=== PATIENT | female | born 1935 | race Caucasian/White ===

== ENCOUNTER 2017-11-25 22:40 | Inpatient (IN) | payer OTHER ==
[~2017-11-25] VITALS: Ht 160 cm; Wt 41.7 kg
[2017-11-25] MEDS ORDERED: ALPR1TAB2 PO (23:25)
[2017-11-25] MEDS ORDERED: FLUT1DIS28 IH (23:25)
[2017-11-26] MEDS ORDERED: LORAZEPAM 0.5 MG TABLET PO PRN (02:45)
[2017-11-26] MEDS ORDERED: ACETAMINOPHEN 325 MG TABLET PO PRN (02:45)
[2017-11-26] MEDS ORDERED: TEMAZEPAM 7.5 MG CAPSULE PO PRN (02:45)
[2017-11-26 03:21] VITALS: BP 118/61
[2017-11-26 07:30] VITALS: BP 115/61
[2017-11-26 08:31] LABS: THYROID STIMULATING HORMONE 3.516 mIU/mL (0.358-3.740)
[2017-11-26 09:55] LABS: *BILIRUBIN,URIN NEGATIVE (NEGATIVE); *BLOOD, URINE NEGATIVE (NEGATIVE); *CLARITY,URINE CLEAR (CLEAR); *COLOR,URINE YELLOW (YELLOW); *KETONES,URINE NEGATIVE (NEGATIVE); *PROTEIN,URINE NEGATIVE (NEGATIVE); *UROBILINOGEN,URINE 0.2 E.U./dl (NORMAL); LEUKOCYTE ESTERASE ,URINE TRACE (NEGATIVE); NITRITE, URINE NEGATIVE (NEGATIVE); UGLUCOSE NEGATIVE (NEGATIVE)
[2017-11-26 09:58] LABS: BACTERIA,URINE FEW /HPF (NONE SEEN); RBC,URINE 0-3 /HPF (0-3); SQUAMOUS EPITHELIAL CELL,UR FEW /HPF (NONE SEEN); WBC,URINE 0-3 /HPF (0-3)
[2017-11-26 15:14] VITALS: BP 99/54
[2017-11-26] MEDS: POLYVINYL ALCOHOL OPHT DROPS 15 ML BOTTLE EACHEYE SCH ×2 (16:57→17:00)
[2017-11-26 21:22] VITALS: BP 106/52
[2017-11-26] MEDS: SIMVASTATIN 10 MG TABLET PO SCH (22:09)
[2017-11-27 07:30] VITALS: BP 110/67
[2017-11-27] MEDS: RIVASTIGMINE TARTRATE 1.5 MG CAPSULE PO SCH ×2 (08:47→20:51)
[2017-11-27] MEDS: POLYVINYL ALCOHOL OPHT DROPS 15 ML BOTTLE EACHEYE SCH ×2 (08:48→16:46)
[2017-11-27 15:42] VITALS: BP 109/57
[2017-11-27] MEDS: SIMVASTATIN 10 MG TABLET PO SCH (20:51)
[2017-11-27] MEDS: MIRTAZAPINE 15 MG TABLET PO SCH (20:52)
[2017-11-27 21:26] VITALS: BP 143/61
[2017-11-28 07:30] VITALS: BP 107/53
[2017-11-28] MEDS: RIVASTIGMINE TARTRATE 1.5 MG CAPSULE PO SCH ×2 (08:53→20:12)
[2017-11-28] MEDS: POLYVINYL ALCOHOL OPHT DROPS 15 ML BOTTLE EACHEYE SCH ×2 (08:53→17:19)
[2017-11-28] MEDS: FLUTICASONE/VILANTEROL 1 EACH BLST.W.DEV INH SCH (11:56)
[2017-11-28 15:29] VITALS: BP 123/62
[2017-11-28] MEDS ORDERED: FLUTICASONE/SALMETEROL 250/50 INHALER IH SCH (17:00)
[2017-11-28 20:00] VITALS: BP 104/66
[2017-11-28] MEDS: SIMVASTATIN 10 MG TABLET PO SCH (20:12)
[2017-11-28] MEDS: MIRTAZAPINE 15 MG TABLET PO SCH (21:00)
[2017-11-29 07:30] VITALS: BP 94/46
[2017-11-29] MEDS: RIVASTIGMINE TARTRATE 1.5 MG CAPSULE PO SCH ×2 (08:59→21:09)
[2017-11-29] MEDS: POLYVINYL ALCOHOL OPHT DROPS 15 ML BOTTLE EACHEYE SCH (09:00)
[2017-11-29] MEDS: FLUTICASONE/VILANTEROL 1 EACH BLST.W.DEV INH SCH (09:00)
[2017-11-29 15:20] VITALS: BP 105/57
[2017-11-29] MEDS: POLYVINYL ALCOHOL OPHT DROPS 15 ML BOTTLE EACHEYE PRN (17:11)
[2017-11-29] MEDS: MIRTAZAPINE 15 MG TABLET PO SCH (21:09)
[2017-11-29] MEDS: SIMVASTATIN 10 MG TABLET PO SCH (21:09)
[2017-11-30 07:30] VITALS: BP 102/50
[2017-11-30] MEDS: RIVASTIGMINE TARTRATE 1.5 MG CAPSULE PO SCH ×2 (09:00→20:03)
[2017-11-30] MEDS: FLUTICASONE/VILANTEROL 1 EACH BLST.W.DEV INH SCH (09:00)
[2017-11-30] MEDS: POLYVINYL ALCOHOL OPHT DROPS 15 ML BOTTLE EACHEYE PRN ×3 (09:00→20:03)
[2017-11-30 16:49] VITALS: BP 103/67
[2017-11-30] MEDS: MIRTAZAPINE 15 MG TABLET PO SCH (20:03)
[2017-11-30 20:15] VITALS: BP 104/50
[2017-11-30] MEDS: SIMVASTATIN 10 MG TABLET PO SCH (20:34)
[2017-12-01 07:30] VITALS: BP 107/43
[2017-12-01] MEDS: RIVASTIGMINE TARTRATE 1.5 MG CAPSULE PO SCH ×2 (09:01→20:10)
[2017-12-01] MEDS: POLYVINYL ALCOHOL OPHT DROPS 15 ML BOTTLE EACHEYE PRN ×3 (09:01→17:38)
[2017-12-01] MEDS: FLUTICASONE/VILANTEROL 1 EACH BLST.W.DEV INH SCH (09:09)
[2017-12-01 16:47] VITALS: BP 105/46
[2017-12-01 20:00] VITALS: BP 98/48
[2017-12-01] MEDS: MIRTAZAPINE 15 MG TABLET PO SCH (20:10)
[2017-12-01] MEDS: SIMVASTATIN 10 MG TABLET PO SCH (20:10)
[2017-12-02 07:30] VITALS: BP 109/49
[2017-12-02] MEDS: POLYVINYL ALCOHOL OPHT DROPS 15 ML BOTTLE EACHEYE PRN (08:49)
[2017-12-02] MEDS: RIVASTIGMINE TARTRATE 1.5 MG CAPSULE PO SCH (08:49)
[2017-12-02] MEDS: FLUTICASONE/VILANTEROL 1 EACH BLST.W.DEV INH SCH (08:49)
== END 2017-12-02 12:30 | DRG 881 ==
LOC: ER 22:44 → GPS 11-26 01:40
PROVIDERS: ADMIT Psychiatry & Neurology Psychiatry
DX: F32.9 Major depressive disorder, single episode, unspecified (principal); E44.0 Moderate protein-calorie malnutrition; Z68.1 Body mass index [BMI] 19.9 or less, adult; F03.91 Unspecified dementia, unspecified severity, with behavioral disturbance; F41.9 Anxiety disorder, unspecified; H26.9 Unspecified cataract; E78.5 Hyperlipidemia, unspecified; J45.909 Unspecified asthma, uncomplicated; R35.0 Frequency of micturition; M62.50 Muscle wasting and atrophy, not elsewhere classified, unspecified site
CPT/HCPCS: 36415; 84443; A4663

== ENCOUNTER 2018-01-27 19:41 | Inpatient (IN) | payer OTHER ==
[~2018-01-27] VITALS: Ht 160 cm; Wt 44.0 kg
[~2018-01-27 19:41] MED LIST: FLUT1DIS28 IH
[2018-01-27] MEDS ORDERED: HALOPERIDOL LACTATE 5 MG/1 ML VIAL IM ONE (20:30)
[2018-01-27] MEDS ORDERED: LORAZEPAM 2 MG/1 ML VIAL IM ONE (20:30)
[2018-01-27] MEDS ORDERED: HALOPERIDOL LACTATE 5 MG/1 ML VIAL ONE (20:32)
[2018-01-27] MEDS ORDERED: LORAZEPAM 2 MG/1 ML VIAL ONE (20:33)
[2018-01-27 20:43] LABS: BASOPHILS % (AUTO) 0.5 % (0.0-2.0); EOSINOPHILS # (AUTO) 0.2 K/uL (0.0-0.7); EOSINOPHILS % (AUTO) 2.4 % (0.0-7.0); HEMATOCRIT 35.7 % (31.2-41.9); HEMOGLOBIN 12.1 g/dL (10.9-14.3); LYMPHOCYTES # (AUTO) 2.2 K/uL (20.0-40.0); LYMPHOCYTES % (AUTO) 32.8 % (20.5-51.5); MEAN CORPUSCULAR HEMOGLOBIN 30.7 uug (24.7-32.8); MEAN CORPUSCULAR HGB CONC 34 g/dL (32.3-35.6); MEAN CORPUSCULAR VOLUME 90.9 fL (75.5-95.3); MONOCYTES # (AUTO) 0.7 K/uL (2.0-10.0); NEUTROPHILS # (AUTO) 3.6 K/uL (1.8-8.9); NEUTROPHILS % (AUTO) 54.3 % (38.5-71.5); PLATELET COUNT (AUTO) 211 K/uL (179-408); RED BLOOD CELL COUNT(AUTO) 3.93 MIL/uL (3.63-4.92); WHITE BLOOD COUNT (AUTO) 6.7 K/uL (3.8-11.8)
--- NOTE | 2018-01-27 20:43 | NUR ---
PATIENT TO ED WITH C/O ALTERED MENTAL STATUS. BROUGHT TO ED BY CAREGIVER WHO STATES PATIENT WAS BEHAVING ODDLY. NO NOTED INJURIES, PATIENT UNCOOPERATIVE WITH EXAM AND DIAGNOSTIC TEST. PATIENT GIVEN IM HALDOL/ATIVAN IM. PATIENT LABS OBTAINED AND SENT, EKG PERFORMED, SECURITY AT BEDSIDE
[2018-01-27 21:04] LABS: ALANINE AMINOTRANSFERASE 11 U/L (14-59); ALKALINE PHOSPHATASE 121 U/L (50-136); ASPARTATE AMINOTRANSFERASE 8 U/L (15-37); BILIRUBIN,DIRECT 0.1 mg/dL (0.0-0.2); BILIRUBIN,TOTAL 0.3 mg/dL (0.2-1.0); CARBON DIOXIDE 28 mmol/L (21-32); CHLORIDE 104 mmol/L (98-107); CREATININE 0.7 mg/dL (0.6-1.3); GLUCOSE 114 mg/dL (74-106); POTASSIUM 4.3 mmol/L (3.5-5.1); TOTAL PROTEIN, SERUM 6.9 g/dL (6.4-8.2); UREA NITROGEN, BLOOD 15 mg/dL (7-18)
[2018-01-27 21:05] LABS: ACETAMINOPHEN < 2.0 ug/mL (10-30)
[2018-01-27 21:08] LABS: ETHANOL < 3 MG/DL (0-0)
[2018-01-27 21:23] LABS: *BILIRUBIN,URIN NEGATIVE (NEGATIVE); *BLOOD, URINE NEGATIVE (NEGATIVE); *CLARITY,URINE CLEAR (CLEAR); *COLOR,URINE YELLOW (YELLOW); *KETONES,URINE NEGATIVE (NEGATIVE); *PROTEIN,URINE NEGATIVE (NEGATIVE); *UROBILINOGEN,URINE 0.2 E.U./dl (NORMAL); LEUKOCYTE ESTERASE ,URINE 1+ (NEGATIVE); NITRITE, URINE NEGATIVE (NEGATIVE); UGLUCOSE NEGATIVE (NEGATIVE)
[2018-01-27 21:29] LABS: MUCUS,URINE MODERATE /LPF (0-FEW); SQUAMOUS EPITHELIAL CELL,UR FEW /HPF (NONE SEEN)
[2018-01-27 21:34] LABS: *AMPHETAMINE, URINE NEGATIVE (NEGATIVE); *BARBITURATE, URINE NEGATIVE (NEGATIVE); *CANNABINOID, URINE NEGATIVE (NEGATIVE); *COCCAINE, URINE NEGATIVE (NEGATIVE); *OPIATE, URINE NEGATIVE (NEGATIVE); *PHENCYCLIDINE SCREEN,URINE NEGATIVE (NEGATIVE)
--- NOTE | 2018-01-27 22:50 | NUR ---
patient to be admitted to geriatric psych floor for further treatment and evaluation
--- NOTE | 2018-01-27 22:58 | NUR ---
report called to [facility]
[2018-01-27] MEDS ORDERED: MAGNESIUM HYDROXIDE 30 ML LIQUID UDC PO PRN (23:15)
[2018-01-27] MEDS ORDERED: LORAZEPAM 1 MG TABLET PO PRN (23:15)
[2018-01-27] MEDS ORDERED: ACETAMINOPHEN 325 MG TABLET PO PRN (23:15)
[2018-01-27] MEDS ORDERED: MAG HYDROX/AL HYDROX/SIMETH 30 ML LIQUID UDC PO PRN (23:15)
[2018-01-27 23:30] VITALS: BP 104/41
[2018-01-28] MEDS ORDERED: Z GUARD REMEDY PASTE 57 GM TUBE TOP PRN (06:30)
--- NOTE | 2018-01-28 06:43 | NUR ---
Admission Note: 82 y.o. female brought to MHU via gurney, accompanied by ER staff. Pt on a 5150 for GD and DTO. According to the Hold. Pt was bib her caregiver to [facility] from [facility] due to aggressive behavior and striking out at her caregiver. Pt is confused, disorganized, and disoriented while in the ER. Pt was uncooperative and refusing diagnostic procedures. Pt had been refusing medication for four days, verbally abusive to staff, refusing to shower for almost 2 weeks, trying to leave the facility, labile, impulsive, unpredictable, with no regards to her safety, poor insight, and impaired judgment. Advisement and Patient Rights Handbook given While in the ER, Pt was aggressive with staff and received an IM of Haldol 5mg and Ativan 2mg. Upon admission, Pt was sedated, arousable to touch, but confused and disoriented. Pt unable to sign any paperwork, unable to answer any questions, unable to participate in assessment. VS stable, body checked for contraband. Dr Caballero and Dr Lindo notified of admission, orders received.
[2018-01-28 07:30] VITALS: BP 105/54
--- NOTE | 2018-01-28 15:12 | NUR ---
Patient confused, disoriented. Reoriented, redirectable. Patient stated that she was not supposed to be here on the first place. Denies pain and discomfort. Ambulated to the bathroom with minimal assist and unsteady gait. Calll light within reach. Bed alarm on at all times. Bed in low and locked position. will monitor. Addendum: 01/28/18 at 1518 by DAVY JENSEN RN No SI noted.
[2018-01-28] MEDS: FLUTICASONE/VILANTEROL 1 EACH BLST.W.DEV INH SCH (15:15)
[2018-01-28 15:29] VITALS: BP 107/45
[2018-01-28 20:11] VITALS: BP 123/50
[2018-01-28] MEDS: risperiDONE 0.5 MG TABLET PO SCH (21:00)
[2018-01-29 07:56] VITALS: BP 144/81
[2018-01-29] MEDS: risperiDONE 0.5 MG TABLET PO SCH ×2 (08:18→21:31)
[2018-01-29] MEDS: FLUTICASONE/VILANTEROL 1 EACH BLST.W.DEV INH SCH (08:19)
[2018-01-29 15:44] VITALS: BP 108/47
[2018-01-29] MEDS: SULFAMETH/TRIMETH 800/160 MG TABLET PO SCH ×2 (17:05→21:31)
[2018-01-29 20:16] VITALS: BP 117/51
[2018-01-30 07:30] VITALS: BP 99/53
[2018-01-30] MEDS: SULFAMETH/TRIMETH 800/160 MG TABLET PO SCH ×2 (09:21→21:00)
[2018-01-30] MEDS: risperiDONE 0.5 MG TABLET PO SCH ×2 (09:21→20:53)
[2018-01-30] MEDS: FLUTICASONE/VILANTEROL 1 EACH BLST.W.DEV INH SCH (09:22)
--- NOTE | 2018-01-30 12:56 | NUR ---
Initial Discharge Note: Pt is requesting to return home however she is from an Assisted living facility [facility] ([address], [place] [address]; [phone]). Pt is conserved (Probate Conservator) by her daughter Radha Dewitt ([phone]) who are requesting for pt to return to [facility] assisted living. SHOVEL OPERATOR contacted assisted director of assisted living Yaneli who requested most recent physicians report and current medication list from . Assisted director of assisted living Yaneli stated she will come to [facility] to evaluate pt tomorrow December 01 2017.
--- NOTE | 2018-01-30 15:32 | NUR ---
Firearms Report: collision worker completed and submitted a [employer] firearms report for a a 5150 DTO certification.
--- NOTE | 2018-01-30 15:35 | NUR ---
Discharge Planning: home support worker faxed patient packet to [facility] as requested by Yaneli [ph: ; fax: [phone], admissions counselor. Per Yaneli, she will be out to assess patient tomorrow, 01/31/2018.
[2018-01-30 16:05] VITALS: BP 93/50
[2018-01-30 20:00] VITALS: BP 109/56
--- NOTE | 2018-01-30 21:00 | NUR ---
RECEIVED PATIENT IN HER BED, SHE IS NOTED AWAKE A/O X 2, CALM AND PLEASANT. SHE DENIES SI/HI/AV/VH. SHE WAS ABLE TO COMPLY WITH QHS MEDICATION EXCEPT FOR BACTRIM DS. SHE STATED THAT SHE DID NOT HAVE A BLADDER INFECTION OR ANY INFECTION, SHE STATED THAT SHE DOES NOT HAVE ANY PAIN AND REFUSED TO TAKE BACTRIM DS. MULTIPLE REDIRECTION GIVEN, YET INEFFECTIVE. SAFETY WAS EMPHASIS. WILL CONTINUE TO MONITOR.
[2018-01-31 07:30] VITALS: BP 101/57
[2018-01-31] MEDS: SULFAMETH/TRIMETH 800/160 MG TABLET PO SCH ×3 (09:00→21:00)
[2018-01-31] MEDS: risperiDONE 0.5 MG TABLET PO SCH ×2 (10:12→21:00)
[2018-01-31] MEDS: FLUTICASONE/VILANTEROL 1 EACH BLST.W.DEV INH SCH (10:13)
--- NOTE | 2018-01-31 14:57 | NUR ---
Discharge Planning Note: Yaneli, sustainability coordinator, from [facility] came to assess the patient [ph: ; fax: [phone]]. Yaneli requested updated Physician's Report be completed prior to patient returning to the facility. orthotic aide, Patricia made aware and provided with blank Physician's Report. will fax updated report to Yaneli at [facility] when completed.
[2018-01-31 16:58] VITALS: BP 93/50
[2018-01-31 20:48] VITALS: BP 93/51
[2018-01-31] MEDS: TEMAZEPAM 7.5 MG CAPSULE PO PRN (21:17)
--- NOTE | 2018-02-01 06:22 | NUR ---
Pt refused her scheduled meds stating that "nothing is wrong with me". Pt req that chief underwriter look up her father in the phone book and take her to his house. Pt suspicious of her daughter. Pt thinks that her daughter wants her to be in the hospital. Pt has poor insight, confused, guarded, withdrawn. Pt did req a sleeping pill. Pt stayed in her room the entire shift and only got up to go to the bathroom.
[2018-02-01 07:30] VITALS: BP 99/49
[2018-02-01] MEDS: FLUTICASONE/VILANTEROL 1 EACH BLST.W.DEV INH SCH ×2 (09:00→09:38)
[2018-02-01] MEDS: SULFAMETH/TRIMETH 800/160 MG TABLET PO SCH ×2 (09:38→21:00)
[2018-02-01] MEDS: risperiDONE 0.5 MG TABLET PO SCH ×2 (09:38→21:00)
--- NOTE | 2018-02-01 15:58 | NUR ---
UR Note: ticket worker faxed patient clinicals to renal case manager, AJ, at [facility] [ph: [phone]; fax: [phone]].
[2018-02-01 16:20] VITALS: BP 98/50
--- NOTE | 2018-02-01 18:48 | NUR ---
patient remains isolative and with drawn in room , no real behavior problems today minimum peer interaction with room francisco javier no other interaction
[2018-02-01 19:30] VITALS: BP 105/46
[2018-02-01] MEDS: TEMAZEPAM 7.5 MG CAPSULE PO PRN (21:42)
[2018-02-02 07:30] VITALS: BP 111/50
[2018-02-02] MEDS: FLUTICASONE/VILANTEROL 1 EACH BLST.W.DEV INH SCH (09:14)
[2018-02-02] MEDS: SULFAMETH/TRIMETH 800/160 MG TABLET PO SCH ×2 (09:14→20:06)
[2018-02-02] MEDS: risperiDONE 0.5 MG TABLET PO SCH ×2 (09:14→20:06)
[2018-02-02 16:22] VITALS: BP 115/57
--- NOTE | 2018-02-02 18:17 | NUR ---
Gps/Appliance Fixer- Had been quiet this pm, staying in her room in bed most of the time, safety reviewed and emphasized., monitored needs, encouraged continued verbalizations of her feelings/needs.
[2018-02-02 20:00] VITALS: BP 114/50
--- NOTE | 2018-02-02 20:00 | NUR ---
PT IN ROOM CALM AND IN NO ACUTE DISTRESS. ABLE TO FOLLOW SIMPLE VERBAL COMMANDS. NO S/S OF ACUTE DISTRESS. DENIES ANY PAIN OR DISCOMFORT. REMINDED REGARDING PLAN OF CARE INCLUDING ROUTINE HS MEDICATIONS. NO SUICIAL IDEATIONS PRESENT. WILL CONTINUE TO MONITOR. BED ALARM ON.
--- NOTE | 2018-02-03 05:55 | NUR ---
Refusing lab draws at this time. Will try again at a later time.
--- NOTE | 2018-02-03 06:00 | NUR ---
Pt able to sleep up to 8 hours overnight without difficulty. Encouraged to increase fluid intake. No s/s of danger to others at this time. No adverse reactoin to current bactrim atb therapy.
[2018-02-03 07:30] VITALS: BP 101/54
[2018-02-03] MEDS: SULFAMETH/TRIMETH 800/160 MG TABLET PO SCH ×2 (08:30→20:13)
[2018-02-03] MEDS: FLUTICASONE/VILANTEROL 1 EACH BLST.W.DEV INH SCH (08:31)
[2018-02-03] MEDS: risperiDONE 0.5 MG TABLET PO SCH ×2 (08:38→20:13)
[2018-02-03 11:39] LABS: BASOPHILS % (AUTO) 0.7 % (0.0-2.0); EOSINOPHILS % (AUTO) 0.4 % (0.0-7.0); HEMATOCRIT 35.8 % (31.2-41.9); HEMOGLOBIN 12.1 g/dL (10.9-14.3); LYMPHOCYTES # (AUTO) 0.9 K/uL (20.0-40.0); LYMPHOCYTES % (AUTO) 21.8 % (20.5-51.5); MEAN CORPUSCULAR HEMOGLOBIN 30.5 uug (24.7-32.8); MEAN CORPUSCULAR HGB CONC 34 g/dL (32.3-35.6); MEAN CORPUSCULAR VOLUME 90.3 fL (75.5-95.3); MONOCYTES # (AUTO) 0.4 K/uL (2.0-10.0); MONOCYTES % (AUTO) 8.8 % (0.0-11.0); NEUTROPHILS # (AUTO) 2.9 K/uL (1.8-8.9); NEUTROPHILS % (AUTO) 68.3 % (38.5-71.5); PLATELET COUNT (AUTO) 184 K/uL (179-408); RED BLOOD CELL COUNT(AUTO) 3.96 MIL/uL (3.63-4.92); WHITE BLOOD COUNT (AUTO) 4.2 K/uL (3.8-11.8)
[2018-02-03 11:48] LABS: CARBON DIOXIDE 28 mmol/L (21-32); CHLORIDE 103 mmol/L (98-107); GLUCOSE 122 mg/dL (74-106); MAGNESIUM 2.2 mg/dL (1.8-2.4); PHOSPHOROUS 3.9 mg/dL (2.5-4.9); POTASSIUM 4.3 mmol/L (3.5-5.1); UREA NITROGEN, BLOOD 28 mg/dL (7-18)
--- NOTE | 2018-02-03 14:54 | NUR ---
UR Note: intake worker gave patient clinicals over the phone to family service caseworkerPRASAD, at [facility] [ph: [phone]; fax: [phone]]. Patient authorized 3 additional days (02/03-02/06) with review due on 02/06. SW will continue to follow-up.
[2018-02-03 15:56] VITALS: BP 94/46
--- NOTE | 2018-02-03 16:22 | NUR ---
Gps/Ирина Jeffers from [facility] assisted living called, , checked on dc. plan on patient, informed no plan at this time, needed to talk to Psychiatrist and Ice Cream Scooper for dc.plan
--- NOTE | 2018-02-03 21:50 | NUR ---
PATIENT GIVEN RESTORIL 7.5MG PO PRN FOR SLEEP. WILL CONTINUE TO MONITOR AND ASSESS.
[2018-02-03] MEDS: TEMAZEPAM 7.5 MG CAPSULE PO PRN (21:51)
[2018-02-03 22:30] VITALS: BP 107/61
--- NOTE | 2018-02-03 23:00 | NUR ---
PATIENT ASLEEP IN BED. NO RESP. DISTRESS NOTED. WILL CONTINUE TO MONITOR AND ASSESS.
[2018-02-04 07:30] VITALS: BP 101/47
[2018-02-04] MEDS: risperiDONE 0.5 MG TABLET PO SCH ×2 (08:17→21:00)
[2018-02-04] MEDS: SULFAMETH/TRIMETH 800/160 MG TABLET PO SCH ×2 (08:17→21:00)
[2018-02-04] MEDS: FLUTICASONE/VILANTEROL 1 EACH BLST.W.DEV INH SCH (08:18)
[2018-02-04 15:34] VITALS: BP 98/46
--- NOTE | 2018-02-04 17:36 | NUR ---
Gps/[employer] D[employer]- Had been istaying in her room most of the day, cooperative with staff, follows simple directions, denies discomfort. Interacting fairly well with her roommate next to her. Occ. prompting and redirections. No resp. distress noted.
--- NOTE | 2018-02-04 19:55 | NUR ---
RECEIVED PATIENT IN HER ROOM IN BED, SHE IS NOTED AWAKE A/O X 2. SHE IS ABLE TO AMBULATE WITH STEADY GAIT AND ABLE TO MAKE HER NEEDS KNOWN. SHE IS NOTED EASILY IRRITABLE, REFUSING V/S REFUSING INTERVIEW, SHE STATED, "I AM FINE, I DON'T WANT MY B/P TAKEN, I JUST WANT TO BE LEFT ALONG". MULTIPLE REDIRECTION GIVEN YET INEFFECTIVE, SHE CONTINUE REFUSING V/S. SAFETY WAS EMPHASIS. WILL CONTINUE TO MONITOR.
--- NOTE | 2018-02-04 22:00 | NUR ---
PATIENT REFUSED BACTRIM DS AND RISPERIDONE QHS, MULTIPLE REDIRECTION GIVEN, HOWEVER, INEFFECTIVE. WILL CONTINUE TO MONITOR CLOSELY.
--- NOTE | 2018-02-05 06:43 | NUR ---
PATIENT SLEPT FOR APPROX 8.00 HRS THROUGH THE NIGHT. CONTINUE WITHDRAWN, A/O X 2. POOR INSIGHT AND JUDGMENT TO THE REASON FOR HER ADMISSION TO MHU.
[2018-02-05 07:30] VITALS: BP 109/53
[2018-02-05] MEDS: SULFAMETH/TRIMETH 800/160 MG TABLET PO SCH (09:08)
[2018-02-05] MEDS: risperiDONE 0.5 MG TABLET PO SCH ×2 (09:08→20:43)
[2018-02-05] MEDS: FLUTICASONE/VILANTEROL 1 EACH BLST.W.DEV INH SCH (09:08)
[2018-02-05 15:44] VITALS: BP 98/48
[2018-02-05 20:50] VITALS: BP 135/70
[2018-02-06 07:30] VITALS: BP 100/50
[2018-02-06] MEDS: risperiDONE 0.5 MG TABLET PO SCH ×2 (10:00→20:29)
[2018-02-06] MEDS: FLUTICASONE/VILANTEROL 1 EACH BLST.W.DEV INH SCH (10:05)
--- NOTE | 2018-02-06 11:51 | NUR ---
Discharge Planning Note: Forester Aide placed call to Yaneli at [facility] ([phone]) to discuss discharge planning. Yaneli was not available and spoke with Deonna in admissions. Informed Deonna that patient may be discharging in the next couple of days. Deonna aware and agreeable. Forester Aide faxed over the updated Physician's Report (fax [phone]). Deonna also requested a signed medication list for the patient upon discharge, OK'd for VICKY to fax copy of discharge prescriptions on day of discharge. Forester Aide will continue to follow-up. Addendum: 02/06/18 at 1623 by YESSICA GONSALVES At 1600, VICKY placed call to patient's daughter, Radha ([phone]) to inform her of patient's current prognosis and to discuss discharge planning. Informed daughter of patient's upcoming discharge. Pt's daughter reports that she will arrange transportation for the patient to return to her [facility] and requested early notice so she can arrange it. VICKY will continue to follow-up to ensure safe discharge.
[2018-02-06 13:00] VITALS: BP 101/50
--- NOTE | 2018-02-06 16:01 | NUR ---
UR Note: VICKY faxed updated clinicals to PRASAD at [facility] (ph. [phone]; f [phone]). VICKY will continue to follow-up.
[2018-02-06 20:36] VITALS: BP 122/48
[2018-02-06] MEDS: TEMAZEPAM 7.5 MG CAPSULE PO PRN (21:10)
[2018-02-07 07:30] VITALS: BP 106/47
[2018-02-07] MEDS: risperiDONE 0.25 MG TABLET PO SCH ×2 (08:22→20:18)
[2018-02-07] MEDS: FLUTICASONE/VILANTEROL 1 EACH BLST.W.DEV INH SCH (08:23)
[2018-02-07 16:58] VITALS: BP 101/48
[2018-02-07 20:13] VITALS: BP 101/50
--- NOTE | 2018-02-08 06:36 | NUR ---
GPS: REMAIN CALM AND COOPERATIVE WITH MEDS AND CARE. PATIENT SLEPT FOR APPROX 5.00 HRS THROUGH THE NIGHT. A/O X 2. POOR INSIGHT AND JUDGMENT. CONTINUE MONITOR FOR SAFETY.
[2018-02-08 07:30] VITALS: BP 97/56
[2018-02-08] MEDS: FLUTICASONE/VILANTEROL 1 EACH BLST.W.DEV INH SCH (08:31)
[2018-02-08] MEDS: risperiDONE 0.25 MG TABLET PO SCH (08:32)
--- NOTE | 2018-02-08 09:56 | NUR ---
Discharge Note: Patient will be discharged back to [facility] [[address], [place] [address]; [phone]] via private transportation at 11:30am. Spoke with Yaneli at the facility who states they are ready to accept the patient back today. Spoke with patients dtr/Probate Conservator, Radha Millersukh ([phone]) who has arranged transportation for the patient with [employer] ([phone]). Patient is alert and oriented x2 and denies SI/HI. Patient will continue to follow-up with her Primary Care Physician, Dr. Adelita Lopez [[address], [place] [address]; ]. Patient was also provided with an outpatient Psychiatrist appointment with Dr. Rebecca Ball [[address], [place] [address]; ] on February 21, 2018 at 3pm. Patient was given outpatient mental health referrals to [facility] [[address], [place] [address]; [phone]]; [facility] Crisis Line ([phone]); National Suicide Prevention Lifeline ( ).
--- NOTE | 2018-02-08 10:29 | NUR ---
Received patient alert and oriented x2 with periods of confusion in stable condition. For discharge to assisted living via private transport at 1130am. will continue ff up with primary physician.
--- NOTE | 2018-02-08 11:20 | NUR ---
Patient discharge to [facility] at 1050am via private transport in stable condition. instruction given and verbalize understanding.
--- NOTE | 2018-02-08 11:33 | NUR ---
UR Note: VICKY faxed discharge clinicals to PRASAD at [facility] (ph. [phone]; f [phone]). VICKY will continue to follow-up.
== END 2018-02-08 10:50 | DRG 885 ==
LOC: ER 19:41 → GPS 23:24
PROVIDERS: ADMIT Psychiatry & Neurology Psychiatry; ATTEND Internal Medicine
DX: F29 Unspecified psychosis not due to a substance or known physiological condition (principal); E43 Unspecified severe protein-calorie malnutrition; N17.0 Acute kidney failure with tubular necrosis; F03.91 Unspecified dementia, unspecified severity, with behavioral disturbance; N39.0 Urinary tract infection, site not specified; Z68.1 Body mass index [BMI] 19.9 or less, adult; N18.9 Chronic kidney disease, unspecified; Z91.19 Patient's noncompliance with other medical treatment and regimen; Z91.14 Patient's other noncompliance with medication regimen; R73.9 Hyperglycemia, unspecified; M62.50 Muscle wasting and atrophy, not elsewhere classified, unspecified site; J43.9 Emphysema, unspecified; J45.909 Unspecified asthma, uncomplicated
CPT/HCPCS: 36415; 71045; 80307; 83735; 84100; 84443; 85025; 93005; A4663; G0480; G0480-TC; J1630; J2060